=== PATIENT | male | born 1990 | race Caucasian/White ===

== ENCOUNTER 2016-11-09 23:42 | Emergency (ER) | payer MEDICAID, OTHER ==
[2016-11-09 23:48] VITALS: BMI 14.7
[2016-11-09 23:50] VITALS: BP 131/93; PULSE 52; RESP 18; TEMP 97.9; O2SAT 100
[2016-11-10] MEDS ORDERED: Oxycodone/Acetaminophen 5/325 mg Tab PO STA (00:07)
--- NOTE | 2016-11-10 00:07 | ED PDOC ---
Arrival/HPI - General Chief Complaint: Dental Pain Time Seen by Provider: 11/09/16 23:45 Historian: Patient - History of Present Illness Narrative History of Present Illness (Text): 11/10/16 00:09 26-year-old male presents today with left lower dental pain 2 days. Patient denies trauma or injury. Patient states he has a sharp stabbing pain to the left lower molar. Patient states he took 4 ibuprofens prior to coming to the emergency room without improvement in his symptoms. Denies fevers or chills. Denies trismus or drooling. Patient denies any other complaints. Past Medical History - Provider Review Nursing Documentation Reviewed: Yes - Travel History Have you recently traveled outside [place] w/in the past 3 mons?: No - Past History Past History: No Previous - Infectious Disease Hx of Infectious Diseases: None - Tetanus Immunization Tetanus Immunization: Unknown - Past Medical History Past Medical History: No Previous - Hematological/Oncological Hx Blood Disorders: No - Psychiatric Hx Psychophysiologic Disorder: No Hx Anxiety: No Hx Bipolar Disorder: No Hx Depression: No Hx Emotional Abuse: No Hx Hallucinations: No Hx Panic Disorder: No Hx Post Traumatic Stress Disorder: No Hx Psychosis: No Hx Physical Abuse: No Hx Schizophrenia: No Hx Sexual Abuse: No Hx Substance Use: No - Past Surgical History Past Surgical History: No Previous - Anesthesia Hx Anesthesia: No Hx Anesthesia Reactions: No Hx Malignant Hyperthermia: No - Suicidal Assessment Feels Threatened In Home Enviroment: No Family/Social History - Physician Review Nursing Documentation Reviewed: Yes Family/Social History: Unknown Family HX Smoking Status: Former Smoker Hx Alcohol Use: Yes Frequency of alcohol use: Socially Hx Substance Use: No Hx Substance Use Treatment: No Allergies/Home Meds Allergies/Adverse Reactions: Allergies No Known Allergies Allergy (Verified 01/26/15 18:18) Review of Systems - Review of Systems Constitutional: absent: Fatigue, Fevers ENT: Other (Left lower molar dental pain) Respiratory: absent: SOB, Cough Cardiovascular: absent: Chest Pain, Palpitations Gastrointestinal: absent: Abdominal Pain, Nausea, Vomiting Genitourinary Male: absent: Dysuria, Frequency Musculoskeletal: absent: Arthralgias Skin: absent: Rash, Pruritis Physical Exam Vital Signs Reviewed: Yes Vital Signs Temp Pulse Resp BP Pulse Ox 11/09/16 23:49 97.9 F 52 L 18 131/93 H 100 Temperature: Afebrile Blood Pressure: Hypertensive Pulse: Regular Respiratory Rate: Normal Appearance: Positive for: Well-Appearing, Non-Toxic, Uncomfortable Pain Distress: Mild Mental Status: Positive for: Alert and Oriented X 3 - Systems Exam Head: Present: Atraumatic Conjunctiva: Present: Normal Ears: Present: Normal, NORMAL TM, Normal Canal. No: Erythema Mouth: Present: Moist Mucous Membranes, Normal Lips, Normal Tounge. No: Drooling, Trismus, Normal Teeth (+ left lower molar dental fracture; + tenderness. no edema, no erythema. ) Pharnyx: Present: Normal. No: ERYTHEMA, EXUDATE Nose (External): Present: Atraumatic Nose (Internal): Present: Normal Inspection Neck: Present: Normal Range of Motion. No: Lymphadenopathy Respiratory/Chest: Present: Clear to Auscultation, Good Air Exchange. No: Respiratory Distress, Accessory Muscle Use Cardiovascular: Present: Regular Rate and Rhythm, Normal S1, S2. No: Murmurs Skin: Present: Warm, Dry, Normal Color. No: Rashes Psychiatric: Present: Alert, Oriented x 3 Medical Decision Making ED Course and Treatment: 11/10/16 00:15 Patient is nontoxic well-appearing in no distress with stable vital signs No trismus or drooling, moist mucous membranes Amoxicillin Percocet I advised follow-up with the dentist within the next 2 days. I advised immediate return is symptoms worsen persist or if new concerning symptoms develop Patient verbalizes understanding of discharge instructions and need for immediate followup. Impression: Toothache, dental fracture Motrin every 6 hours as needed for pain percocet; 1 tablet every 6 hours as needed for moderate to severe pain; may cause drowsiness. Amoxicillin 1 tablet 3 times daily x 10 days Follow-up with the dentist within the next 2 days Follow up with the primary care physician within the next 2 days. Return immediately if symptoms worsen persist or if new concerning symptoms develop - Medication Orders Current Medication Orders: Discontinued Medications Amoxicillin (Amoxil 500 Mg Cap) 500 mg PO STAT STA PRN Reason: Protocol Stop: 11/10/16 00:08 Last Admin: 11/10/16 00:14 Dose: 500 mg Oxycodone/Acetaminophen (Percocet 5/325 Mg Tab) 1 tab PO STAT STA Stop: 11/10/16 00:08 Last Admin: 11/10/16 00:15 Dose: 1 tab Disposition/Present on Arrival - Present on Arrival Any Indicators Present on Arrival: No History of DVT/PE: No History of Uncontrolled Diabetes: No Urinary Catheter: No History of Decub. Ulcer: No History Surgical Site Infection Following: None - Disposition Have Diagnosis and Disposition been Completed?: Yes Diagnosis: Toothache Disposition: HOME/ ROUTINE Disposition Time: 00:03 Patient Plan: Discharge Condition: GOOD Discharge Instructions (ExitCare): Toothache (ED) Additional Instructions: Motrin every 6 hours as needed for pain percocet; 1 tablet every 6 hours as needed for moderate to severe pain; may cause drowsiness. Amoxicillin 1 tablet 3 times daily x 10 days Follow-up with the dentist within the next 2 days Follow up with the primary care physician within the next 2 days. Return immediately if symptoms worsen persist or if new concerning symptoms develop Prescriptions: Amoxicillin 500 mg PO TID #30 tab Ibuprofen [Motrin] 600 mg PO Q6H PRN #20 tab PRN Reason: pain/fever reduction oxyCODONE/Acetaminophen [Percocet 5/325 mg Tab] 1 tab PO Q6H PRN #10 tab PRN Reason: moderate to severe pain Referrals: Khang Hui DMD [Staff Provider] - Follow up with primary Ankur Rod DO [Staff Provider] - Follow up with primary [facility] [place] [Outside] - Follow up with primary Forms: WORK NOTE
== END 2016-11-10 00:36 | disposition home or self-care (01) ==
LOC: ED 23:42
DX: K08.89 Other specified disorders of teeth and supporting structures (principal); Z87.891 Personal history of nicotine dependence

== ENCOUNTER 2017-01-05 04:42 | Emergency (ER) | payer MEDICAID ==
[2017-01-05 04:57] VITALS: BMI 15.6
[2017-01-05 04:59] VITALS: BP 125/88; PULSE 60; RESP 17; TEMP 98; O2SAT 100
--- NOTE | 2017-01-05 05:12 | ED PDOC ---
Arrival/HPI - General Chief Complaint: Dental Pain Time Seen by Provider: 01/05/17 05:00 Historian: Patient Past Medical History - Provider Review Nursing Documentation Reviewed: Yes - Past History Past History: No Previous - Infectious Disease Hx of Infectious Diseases: None - Tetanus Immunization Tetanus Immunization: Unknown - Past Medical History Past Medical History: No Previous - Hematological/Oncological Hx Blood Disorders: No - Psychiatric Hx Psychophysiologic Disorder: No Hx Anxiety: No Hx Bipolar Disorder: No Hx Depression: No Hx Emotional Abuse: No Hx Hallucinations: No Hx Panic Disorder: No Hx Post Traumatic Stress Disorder: No Hx Psychosis: No Hx Physical Abuse: No Hx Schizophrenia: No Hx Sexual Abuse: No Hx Substance Use: No - Past Surgical History Past Surgical History: No Previous - Anesthesia Hx Anesthesia: No Hx Anesthesia Reactions: No Hx Malignant Hyperthermia: No - Suicidal Assessment Feels Threatened In Home Enviroment: No Family/Social History - Physician Review Nursing Documentation Reviewed: Yes Family/Social History: No Known Family HX Smoking Status: Heavy Smoker > 10 Cigarettes Daily Hx Alcohol Use: Yes Frequency of alcohol use: Socially Hx Substance Use: No Hx Substance Use Treatment: No Allergies/Home Meds Allergies/Adverse Reactions: Allergies No Known Allergies Allergy (Verified 01/26/15 18:18) Physical Exam Vital Signs Reviewed: Yes Vital Signs Temp Pulse Resp BP Pulse Ox 01/05/17 04:58 98.0 F 60 17 125/88 100 Temperature: Afebrile Blood Pressure: Normal Pulse: Regular Respiratory Rate: Normal Appearance: Positive for: Well-Appearing, Non-Toxic, Comfortable Pain Distress: None Mental Status: Positive for: Alert and Oriented X 3 Medical Decision Making - Medication Orders Current Medication Orders: Ketorolac Tromethamine (Toradol) 30 mg IM STAT STA Stop: 01/05/17 05:05 Penicillin V Potassium (Penicillin Vk Tab) 500 mg PO STAT STA PRN Reason: Protocol Stop: 01/05/17 05:05 - Scribe Statement The provider has reviewed the documentation as recorded by the Alcides Escobar Provider Attestation: All medical record entries made by the Scribphilip were at my direction and personally dictated by me. I have reviewed the chart and agree that the record accurately reflects my personal performance of the history, physical exam, medical decision making, and the department course for this patient. I have also personally directed, reviewed, and agree with the discharge instructions and disposition. Disposition/Present on Arrival - Present on Arrival History of DVT/PE: No History of Uncontrolled Diabetes: No Urinary Catheter: No History of Decub. Ulcer: No History Surgical Site Infection Following: None - Disposition
--- NOTE | 2017-01-05 05:12 | ED PDOC ---
Arrival/HPI - General Chief Complaint: Dental Pain Time Seen by Provider: 01/05/17 05:00 Historian: Patient - History of Present Illness Narrative History of Present Illness (Text): 01/05/17 05:17 La Senior is a 26 year old male who presents to the emergency department complaining of left lower toothache for past few days. States he has experienced similar quality pain before, but was not evaluated by a dentist. Denies any fever, chills, headache, dizziness, difficulty breathing, nausea, vomiting, or any other complaints at this time. Time/Duration: < week Symptom Onset: Gradual Severity Level: Mild Past Medical History - Provider Review Nursing Documentation Reviewed: Yes - Past History Past History: No Previous - Infectious Disease Hx of Infectious Diseases: None - Tetanus Immunization Tetanus Immunization: Unknown - Past Medical History Past Medical History: No Previous - Hematological/Oncological Hx Blood Disorders: No - Psychiatric Hx Psychophysiologic Disorder: No Hx Anxiety: No Hx Bipolar Disorder: No Hx Depression: No Hx Emotional Abuse: No Hx Hallucinations: No Hx Panic Disorder: No Hx Post Traumatic Stress Disorder: No Hx Psychosis: No Hx Physical Abuse: No Hx Schizophrenia: No Hx Sexual Abuse: No Hx Substance Use: No - Past Surgical History Past Surgical History: No Previous - Anesthesia Hx Anesthesia: No Hx Anesthesia Reactions: No Hx Malignant Hyperthermia: No - Suicidal Assessment Feels Threatened In Home Enviroment: No Family/Social History - Physician Review Nursing Documentation Reviewed: Yes Family/Social History: No Known Family HX Smoking Status: Heavy Smoker > 10 Cigarettes Daily Hx Alcohol Use: Yes Frequency of alcohol use: Socially Hx Substance Use: No Hx Substance Use Treatment: No Allergies/Home Meds Allergies/Adverse Reactions: Allergies No Known Allergies Allergy (Verified 01/26/15 18:18) Physical Exam - Physical Exam Narrative Physical Exam (Text): - Review of Systems Constitutional: Normal. absent: Fatigue, Weight Change, Fevers Eyes: Normal ENT: Left lower toothache. Respiratory: Normal absent: SOB, Cough, Sputum Cardiovascular: Normal absent: Chest pain, Palpitations, Syncope Gastrointestinal: Normal absent: Abdominal pain, Diarrhea, Nausea, Vomiting Genitourinary: Normal. absent: Dysuria, Frequency, Hematuria Musculoskeletal: Normal. absent: Arthralgias, Back Pain, Neck Pain Skin: Normal Neurological: Normal absent: Focal Weakness Endocrine: Normal Hemo/Lymphatic: Normal Psychiatric: Normal - Physical exam Patient appears age appropriate, speaking full sentences without difficulty - Systems Exam Head: Present: Atraumatic, Normocephalic Pupils: Present: PERRL Extraocular Muscles: Present: EOMI Conjunctiva: Present: Normal Mouth: Present: Moist Mucous Membranes. no facial swelling. no floor or roof of mouth pain or elevation. gums unremarkable. Poor dentition. no tristhmus Neck: Present: Normal Range of Motion. No: MIDLINE TENDERNESS, Paraspinal Tenderness Respiratory/Chest: Present: Clear to Auscultation, Good Air Exchange. No: Respiratory Distress, Accessory Muscle Use, Tachypneic Cardiovascular: Present: Regular Rate and Rhythm, Normal S1, S2, Peripheral Pulses Present. No: Murmurs Abdomen: Present: Normal Bowel Sounds, No: Tenderness, Peritoneal Signs, Rebound, Guarding, Distention Back: Present: Normal Inspection. No: Midline Tenderness, Paraspinal Tenderness Upper Extremity: Present: Normal Inspection. No: Cyanosis, Edema Lower Extremity: Present: Normal Inspection. No: Edema Neurological: Present: GCS=15, Speech Normal, cranial nerves II through XII fully intact with no cerebellar abnormality, neuro-sensory fully intact. No focal neurological deficits. Skin: Present: Warm, Dry, Normal Color. No: Rashes Lymphatic: Present: OX3, NI, NC Psychiatric: Present: Alert, Oriented x 3, Normal Insight, Normal Concentration Vital Signs Reviewed: Yes Vital Signs Temp Pulse Resp BP Pulse Ox 01/05/17 04:58 98.0 F 60 17 125/88 100 Temperature: Afebrile Blood Pressure: Normal Pulse: Regular Respiratory Rate: Normal Appearance: Positive for: Well-Appearing, Non-Toxic, Comfortable Pain Distress: None Mental Status: Positive for: Alert and Oriented X 3 Medical Decision Making ED Course and Treatment: 01/05/17 05:18 Impression: A 26 year old male who presents to the emergency department complaining of left lower toothache for past few days. Pt is afebrile. On PE, there is no facial swelling. no floor or roof of mouth pain or elevation. gums unremarkable. poor dentition. no tristhmus Plan: -- Toradol -- Penicillin VK Progress Notes: 01/05/17 05:19 Patient is stable for discharge. Will discharge patient on antibiotics and Motrin. Advised to present to emergency department for worsening symptoms and follow up with dentist within few days. Pt states he understands to return to the ER right away for new or worsening symptoms or for inability to f/u with PMD or specialist as instructed. Patient states that he fully agrees with and understands discharge instructions. States that he agrees with the plan and disposition. Verbalized and repeated discharge instructions and plan. I have given the patient opportunity to ask any additional questions. - Medication Orders Current Medication Orders: Discontinued Medications Ketorolac Tromethamine (Toradol) 30 mg IM STAT STA Stop: 01/05/17 05:05 Last Admin: 01/05/17 05:20 Dose: 30 mg Penicillin V Potassium (Penicillin Vk Tab) 500 mg PO STAT STA PRN Reason: Protocol Stop: 01/05/17 05:05 Last Admin: 01/05/17 05:20 Dose: 500 mg - Scribe Statement The provider has reviewed the documentation as recorded by the Horaceibe Fatimah Escobar Provider Attestation: Provider Scribe Attestation: All medical record entries made by the Scribe were at my direction and personally dictated by me. I have reviewed the chart and agree that the record accurately reflects my personal performance of the history, physical exam, medical decision making, and the department course for this patient. I have also personally directed, reviewed, and agree with the discharge instructions and disposition. Disposition/Present on Arrival - Present on Arrival Any Indicators Present on Arrival: No History of DVT/PE: No History of Uncontrolled Diabetes: No Urinary Catheter: No History of Decub. Ulcer: No History Surgical Site Infection Following: None - Disposition Have Diagnosis and Disposition been Completed?: Yes Diagnosis: Pain, dental Disposition: HOME/ ROUTINE Disposition Time: 05:10 Patient Plan: Discharge Condition: GOOD Discharge Instructions (ExitCare): Dental Caries (ED), Toothache (ED) Additional Instructions: PLEASE RETURN TO THE EMERGENCY DEPARTMENT FOR NEW OR WORSENING SYMPTOMS. RETURN RIGHT AWAY IF YOU CANNOT FOLLOW UP WITH YOUR PRIMARY CARE DOCTOR, CLINIC, OR SPECIALIST IN 1-2 DAYS. Prescriptions: Ibuprofen [Motrin] 600 mg PO Q8 PRN #12 tab PRN Reason: Pain, Moderate (4-7) Penicillin VK [Pen-Vee K] 500 mg PO QID #28 tab Referrals: Tuan Brown DMD [Staff Provider] - Follow up with primary
== END 2017-01-05 05:51 | disposition home or self-care (01) ==
LOC: ED 04:42
DX: K08.89 Other specified disorders of teeth and supporting structures (principal)
CPT/HCPCS: 96372; 99282; J1885

== ENCOUNTER 2017-02-25 00:10 | Emergency (ER) | payer SELFPAY ==
[2017-02-25 00:11] VITALS: BMI 15.6
== END 2017-02-25 01:52 | disposition left against medical advice (07) ==
LOC: ED 00:10
DX: Z02.89 Encounter for other administrative examinations (principal); K08.9 Disorder of teeth and supporting structures, unspecified

== ENCOUNTER 2017-07-04 10:28 | Emergency (ER) | payer MEDICAID, OTHER ==
[2017-07-04 10:28] VITALS: BMI 15.6
[2017-07-04 11:04] VITALS: TEMP 98.9
--- NOTE | 2017-07-04 11:22 | ED PDOC ---
Arrival/HPI - History of Present Illness Time/Duration: Other (1 year) Symptom Onset: Gradual Symptom Course: Intermittent Quality: Stabbing, Cramping Severity Level: 10 Activities at Onset: Rest, Light Context: Home <Rojas Mcnally - Last Filed: 07/04/17 13:31> <Sommer STEVENSAdrian - Last Filed: 07/04/17 16:12> - General Chief Complaint: Male Genitourinary - History of Present Illness Narrative History of Present Illness (Text): 07/04/17 11:12 Mr. Senior is a 27 year old male with a past medical history significant for hydrocele of left testicle who presents to the [facility] ED with a chief complaint of left testicle pain. Patient reports that this is a chronic problem that he has suffered with for over a year. This pain is intermittent but has been worse the past several days to the point that the patient has had difficulty closing his legs and having sexual intercourse. Patient denies any new sexual partners, recent sexual intercourse, genital lesions, penile discharge, or any burning/ pain with urination. Patient also denies fever, chills, headache, changes in his vision, chest pain, palpitations, SOB, cough, abdominal pain, N/V/D/C, or any numbness/tingling/weakness of any extremity. (Rojas Mcnally) Past Medical History - Provider Review Nursing Documentation Reviewed: Yes - Travel History Have you recently traveled outside [place] w/in the past 3 mons?: No - Past History Past History: No Previous - Infectious Disease Hx of Infectious Diseases: None - Tetanus Immunization Tetanus Immunization: Unknown - Past Medical History Past Medical History: No Previous - Hematological/Oncological Hx Blood Disorders: No - Psychiatric Hx Psychophysiologic Disorder: No Hx Anxiety: No Hx Bipolar Disorder: No Hx Depression: No Hx Emotional Abuse: No Hx Hallucinations: No Hx Panic Disorder: No Hx Post Traumatic Stress Disorder: No Hx Psychosis: No Hx Physical Abuse: No Hx Schizophrenia: No Hx Sexual Abuse: No Hx Substance Use: No - Past Surgical History Past Surgical History: No Previous - Anesthesia Hx Anesthesia: No Hx Anesthesia Reactions: No Hx Malignant Hyperthermia: No - Suicidal Assessment Feels Threatened In Home Enviroment: No <Rojas Mcnally - Last Filed: 07/04/17 13:31> Family/Social History - Physician Review Nursing Documentation Reviewed: Yes Family/Social History: No Known Family HX Smoking Status: Heavy Smoker > 10 Cigarettes Daily Hx Alcohol Use: Yes Hx Substance Use: No Hx Substance Use Treatment: No <Rojas Mcnally - Last Filed: 07/04/17 13:31> Allergies/Home Meds <Rojas Mcnally - Last Filed: 07/04/17 13:31> <Adrian Novoa DO - Last Filed: 07/04/17 16:12> Allergies/Adverse Reactions: Allergies No Known Allergies Allergy (Verified 01/26/15 18:18) Home Medications: Home Meds Medication Instructions Recorded Confirmed No Known Home Med 07/04/17 07/04/17 Review of Systems - Physician Review All systems were reviewed & negative as marked: Yes - Review of Systems Constitutional: Normal. absent: Fevers, Night Sweats Eyes: Normal. absent: Vision Changes ENT: Normal Respiratory: Normal. absent: SOB, Cough, Wheezing Cardiovascular: Normal. absent: Chest Pain, Palpitations Gastrointestinal: Normal. absent: Abdominal Pain, Constipation, Diarrhea, Nausea, Vomiting Genitourinary Male: Other (Left testicle pain). absent: Normal, Dysuria, Frequency, Hematuria Musculoskeletal: Normal. absent: Arthralgias, Back Pain, Neck Pain, Joint Swelling, Myalgias Skin: Normal. absent: Rash, Skin Lesions Neurological: Normal. absent: Headache Endocrine: Normal Hemo/Lymphatic: Normal Psychiatric: Normal <Rojas Mcnally - Last Filed: 07/04/17 13:31> Physical Exam Vital Signs Reviewed: Yes Temperature: Afebrile Blood Pressure: Normal Pulse: Regular Respiratory Rate: Normal Appearance: Positive for: Well-Appearing, Non-Toxic, Comfortable Pain Distress: None Mental Status: Positive for: Alert and Oriented X 3 - Systems Exam Head: Present: Atraumatic, Normocephalic Pupils: Present: PERRL Extroacular Muscles: Present: EOMI Conjunctiva: Present: Normal Mouth: Present: Moist Mucous Membranes Neck: Present: Normal Range of Motion, Trachea Midline. No: Meningeal Signs, MIDLINE TENDERNESS, Paraspinal Tenderness, JVD, Lymphadenopathy Respiratory/Chest: Present: Clear to Auscultation, Good Air Exchange. No: Respiratory Distress, Accessory Muscle Use, Wheezes, Rales, Rhonchi, Tachypneic Cardiovascular: Present: Regular Rate and Rhythm, Normal S1, S2, Peripheal Pulses Present. No: Murmurs, Irregular Rhythm, Tachycardic, Bradycardic Abdomen: Present: Normal Bowel Sounds. No: Tenderness, Distention, Peritoneal Signs Genitourinary Male: Present: Normal External Genitalia, Circumcised Penis, Testicle Tenderness (Left), Testicle Swelling (Left). No: Lesions, Penile Discharge, Penile Swelling, Masses Back: Present: Normal Inspection. No: CVA Tenderness, Midline Tenderness, Paraspinal Tenderness Upper Extremity: Present: Normal Inspection. No: Cyanosis, Edema Lower Extremity: Present: Normal Inspection. No: Edema Neurological: Present: GCS=15, CN II-XII Intact, Speech Normal Skin: Present: Warm, Dry, Normal Color. No: Rashes Lymphatic: No: Cervical Adenopathy, Inguinal Adenopathy Psychiatric: Present: Alert, Oriented x 3, Normal Insight, Normal Concentration <Rojas Mcnally - Last Filed: 07/04/17 13:31> Vital Signs Temp Pulse Resp BP Pulse Ox 07/04/17 14:02 62 16 115/78 100 07/04/17 12:44 60 18 114/59 L 100 07/04/17 10:30 98.9 F 78 16 114/73 98 Medical Decision Making - RAD Interpretation Sinter Machine Operator: ED Physician, Radiologist <Rojas Mcnally - Last Filed: 07/04/17 13:31> - RAD Interpretation Sinter Machine Operator: Radiologist <Adrian Novoa DO - Last Filed: 07/04/17 16:12> ED Course and Treatment: 07/04/17 11:25 Impression: 27 year old male with a past medical history significant for hydrocele of left testicle who presents to the [facility] ED with a chief complaint of left testicle pain Plan: -Testes Duplex U/S -Reassess and disposition Prior Visits: 12/2016: Patient was seen and evaluated for tooth pain : Patient seen and evaluated on multiple occasions for left testicular pain (Rojas Mcnally) 07/04/17 In agreement with resident note, which includes further HPI details. Patient was seen and evaluated with resident, came up with plan and treatment together. (Adrian Novoa DO) - RAD Interpretation Radiology Orders: 07/04/17 11:15 TESTES DUPLEX COMPLETE [US] Stat Within normal limits. No torsion. No hydrocele. (Rojas Mcnally) <Rojas Mcnally - Last Filed: 07/04/17 13:31> - PA / DATA REVIEWER / Resident Statement / has reviewed & agrees with the documentation as recorded. MD/ has examined the patient and agrees with the treatment plan. - Scribe Statement The provider has reviewed the documentation as recorded by the Scribe <Adrian Novoa DO - Last Filed: 07/04/17 16:12> - Scribe Statement Kellie Bustillos Provider Scribe Attestation: All medical record entries made by the Scribe were at my direction and personally dictated by me. I have reviewed the chart and agree that the record accurately reflects my personal performance of the history, physical exam, medical decision making, and the department course for this patient. I have also personally directed, reviewed, and agree with the discharge instructions and disposition. (Adrian Novoa DO) Disposition/Present on Arrival - Present on Arrival Any Indicators Present on Arrival: No History of DVT/PE: No History of Uncontrolled Diabetes: No Urinary Catheter: No History of Decub. Ulcer: No History Surgical Site Infection Following: None - Disposition Have Diagnosis and Disposition been Completed?: Yes Disposition Time: 13:34 Patient Plan: Discharge <Rojas Mcnally - Last Filed: 07/04/17 13:31> <Adrian Novoa DO - Last Filed: 07/04/17 16:12> - Disposition Diagnosis: Left testicular pain Disposition: HOME/ ROUTINE Condition: GOOD Discharge Instructions (ExitCare): Testicle Pain (ED) Additional Instructions: Mr. Senior, thank you for letting us take care of you today. Your provider was Dr. Novoa. You were treated for testicular pain. The emergency medical care you received today was directed at your acute symptoms. If you were prescribed any medication, please fill it and take as directed. It may take several days for your symptoms to resolve. Return to the Emergency Department if your symptoms worsen, do not improve, or if you have any other problems. Please contact your doctor or call one of the physicians/clinics you have been referred to that are listed on the Patient Visit Information form that is included in your discharge packet. Bring any paperwork you were given at discharge with you along with any medications you are taking to your follow up visit. Our treatment cannot replace ongoing medical care by a primary care provider (PCP) outside of the emergency department. PLEASE FOLLOW UP WITH A UROLOGIST OF YOUR CHOICE FOR FOLLOW UP. DR. JOSE'S CONTACT INFORMATION HAS BEEN PROVIDED IN THIS PAPERWORK FOR YOU. Thank you for allowing the [facility] team to be part of your care today. Referrals: Brunilda Jose MD [Staff Provider] - Follow up with primary Forms: [email or web address] (Slovak)
[2017-07-04 12:44] VITALS: O2SAT 100
--- NOTE | 2017-07-04 13:19 | US ---
HISTORY: testicle pain L TECHNIQUE: Realtime sonography through the scrotum with color and doppler flow. COMPARISON: None Available. FINDINGS: RIGHT TESTICLE: Measures 4.2 x 2.3 x 2.6 cm. Normal echotexture and flow. RIGHT EPIDIDYMIS: Epididymal head measures 0.6 x 0.9 x 0.9 cm. Grossly unremarkable appearance with normal flow. LEFT TESTICLE: Measures 3.9 x 2.1 x 2.8 cm. Normal echotexture and flow. LEFT EPIDIDYMIS: Epididymal head measures 0.7 x 0.9 x 1.2 cm. Grossly unremarkable appearance with normal flow. HYDROCELE: None. VARICOCELE: None. OTHER FINDINGS: None. IMPRESSION: No evidence of torsion.
[2017-07-04 14:10] VITALS: BP 115/78; PULSE 62; RESP 16
== END 2017-07-04 14:02 | disposition home or self-care (01) ==
LOC: ED 10:28
DX: N50.812 Left testicular pain (principal)